=== PATIENT | female | born 1985 ===

== ENCOUNTER 2021-02-06 12:52 | Observation (INO) | payer SELFPAY ==
[2021-02-06 13:58] VITALS: BP 111/69
[2021-02-06] MEDS ORDERED: ACETAMINOPHEN 500 MG TAB PO ONE (14:09)
[2021-02-06] MEDS ORDERED: ACETAMINOPHEN 325 MG TAB PO PRN ×2 (14:41→15:24)
[2021-02-06] MEDS ORDERED: DOCUSATE SODIUM 100 MG CAP PO PRN ×2 (14:41→15:24)
--- NOTE | 2021-02-06 14:49 | Ultrasound Report ---
US OB limited INDICATION: Evaluate cervical length. COMPARISON: None available. FINDINGS: Cervical length measures 2.1 cm. A single live intrauterine is seen in cephalic presentation with a heart rate of 164 bpm. No significant abnormality is identified elsewhere. IMPRESSION: Decreased cervical length of 2.1 cm. Signer Name: Lonny Pennington MD Signed: 02/06/2021 2:45 PM Workstation Name: [id number]
[2021-02-06 14:57] LABS: Bilirubin,Urine NEG (Negative); Blood,Urine NEG (Negative); Color,Urine Yellow (Yellow); Mucus,Urine 1+ /HPF; Protein,Urine <15 mg/dL mg/dL (Negative); Urobilinogen,Urine < 2.0 mg/dL (<2.0)
[2021-02-06] MEDS ORDERED: WITCH HAZEL/ GLYCERIN PAD TP PRN (15:24)
[2021-02-06] MEDS ORDERED: SIMETHICONE 80 MG CHEW TAB PO PRN (15:24)
[2021-02-06] MEDS ORDERED: ONDANSETRON 4 MG/2 ML INJ IV PRN (15:24)
[2021-02-06] MEDS ORDERED: ALUM-MAG HYDROXIDE-SIMETHICONE 200-200-20MG/5ML ORAL LIQD 30 ML PO PRN (15:24)
[2021-02-06] MEDS ORDERED: guaiFENesin DM 200/20 MG ORAL LIQD 10 ML PO PRN (15:24)
[2021-02-06] MEDS ORDERED: SENNOSIDES/DOCUSATE SODIUM 8.6/50 MG TAB PO PRN (15:24)
[2021-02-06] MEDS ORDERED: SODIUM CHLORIDE NASAL SPRAY 44ML NS PRN (15:24)
[2021-02-06] MEDS ORDERED: PSEUDOEPHEDRINE 30 MG TAB PO PRN (15:24)
[2021-02-06] MEDS ORDERED: diphenhydrAMINE 25 MG CAP PO PRN (15:24)
[2021-02-06] MEDS ORDERED: MAGNESIUM HYDROXIDE (MOM) ORAL LIQD UDC PO PRN (15:24)
[2021-02-06] MEDS ORDERED: LACTATED RINGERS 1,000 ML ONE (15:39)
[2021-02-06] MEDS ORDERED: BETAMET ACET/BETAMET NA PH 6 MG/ML INJ 5 ML MDV IM ONE (16:01)
--- NOTE | 2021-02-06 16:12 | Event Note ---
Date: 02/06/21 35 yo at 23-24 week (JACKI 06/02/21) c/b hx PTD x 2 (29 and 21 weeks) on [place] weekly, declined cerclage, presenting with vaginal pain after taking vaginal progesterone x 1 day for PTL by [facility]. Patient with US showing unchanged cervical length from yesterday 1.8 cm with funneling. Spoke with [facility] Dr Hayden. Will given steriods q24H x 2 doses. D/c vaginal progesterone. Keep [facility] follow up.
[2021-02-06] MEDS ORDERED: LACTATED RINGERS 1,000 ML IV SCH (16:30)
[2021-02-07] MEDS ORDERED: BETAMET ACET/BETAMET NA PH 6 MG/ML INJ 5 ML MDV IM SCH (10:00)
[2021-02-07] MEDS ORDERED: PRENATAL VIT27-FE FUMARATE-FOLIC ACID VIT TAB PO SCH ×2 (10:00)
== END 2021-02-06 16:22 | disposition home or self-care (01) ==
LOC: TRG 12:52 → APU 12:53 → TRG 15:43
PROVIDERS: ADMIT Obstetrics & Gynecology; ATTEND Obstetrics & Gynecology
DX: O26.892 Other specified pregnancy related conditions, second trimester (principal); R10.2 Pelvic and perineal pain; O26.872 Cervical shortening, second trimester; Z3A.23 23 weeks gestation of pregnancy
CPT/HCPCS: 59025; 76815; 81001; 96372; G0378; J0702

== ENCOUNTER 2021-02-07 16:40 | Outpatient (CLI) | payer SELFPAY ==
[2021-02-07 17:04] VITALS: BP 118/71
[2021-02-07] MEDS ORDERED: LACTATED RINGERS 500 ML IV ONE (17:22)
[2021-02-07] MEDS ORDERED: BETAMET ACET/BETAMET NA PH 6 MG/ML INJ 5 ML MDV IM ONE (17:23)
== END 2021-02-07 17:54 | disposition home or self-care (01) ==
LOC: TRG 16:40 → APU 16:40 → TRG 17:54
PROVIDERS: ATTEND Obstetrics & Gynecology
DX: Z34.92 Encounter for supervision of normal pregnancy, unspecified, second trimester (principal); Z3A.23 23 weeks gestation of pregnancy
CPT/HCPCS: 59025; 96372; J0702

== ENCOUNTER 2021-02-22 10:36 | Outpatient (CLI) | payer OTHER ==
[2021-02-22 11:09] VITALS: BP 120/74
[2021-02-22] MEDS ORDERED: LACTATED RINGERS 500 ML IV ONE (11:15)
[2021-02-22 11:39] LABS: Bacteria,Urine 1+ /HPF (Negative); Bilirubin,Urine NEG (Negative); Blood,Urine NEG (Negative); Color,Urine Straw (Yellow); Protein,Urine <15 mg/dL mg/dL (Negative); Urobilinogen,Urine < 2.0 mg/dL (<2.0); WBC,Urine < 1.0 /HPF (0.0-6.0)
[2021-02-22] MEDS ORDERED: LIDOCAINE-MPF (1%) 10 MG/1 ML VIAL 5 ML INFILTRATI ONE (12:09)
[2021-02-22] MEDS ORDERED: LIDOCAINE-MPF (1%) 10 MG/1 ML VIAL 5 ML INFILTRATI NR (12:30)
== END 2021-02-22 13:05 | disposition home or self-care (01) ==
LOC: TRG 10:36 → APU 10:39 → TRG 13:05
PROVIDERS: ATTEND Obstetrics & Gynecology
DX: O26.852 Spotting complicating pregnancy, second trimester (principal); Z3A.26 26 weeks gestation of pregnancy
CPT/HCPCS: 59025; 81001; J0696

== ENCOUNTER 2021-03-23 12:32 | Outpatient (CLI) | payer SELFPAY ==
[2021-03-23 13:02] VITALS: BP 120/77
[2021-03-23] MEDS ORDERED: LACTATED RINGERS 1,000 ML IV ONE (13:03)
[2021-03-23 14:12] LABS: Bilirubin,Urine NEG (Negative); Blood,Urine NEG (Negative); Color,Urine Yellow (Yellow); Mucus,Urine FEW /HPF; Protein,Urine <15 mg/dL mg/dL (Negative); RBC,Urine < 1.0 /HPF (0.0-6.0); Urobilinogen,Urine < 2.0 mg/dL (<2.0)
== END 2021-03-23 15:00 | disposition home or self-care (01) ==
LOC: TRG 12:32 → APU 12:34 → TRG 15:00
PROVIDERS: ATTEND Obstetrics & Gynecology
DX: O47.03 False labor before 37 completed weeks of gestation, third trimester (principal); Z3A.30 30 weeks gestation of pregnancy
CPT/HCPCS: 59025; 81001; 96360; J7120

== ENCOUNTER 2021-04-13 13:45 | Outpatient (CLI) | payer OTHER ==
[2021-04-13 14:04] VITALS: BP 126/76
[2021-04-13] MEDS ORDERED: BETAMET ACET/BETAMET NA PH 6 MG/ML INJ 5 ML MDV IM ONE (15:28)
[2021-04-13] MEDS ORDERED: BETAMET ACET/BETAMET NA PH 6 MG/ML INJ 5 ML MDV IM SCH (16:00)
== END 2021-04-13 16:00 | disposition home or self-care (01) ==
LOC: TRG 13:45 → APU 13:54 → TRG 16:00
PROVIDERS: ATTEND Obstetrics & Gynecology
DX: Z34.93 Encounter for supervision of normal pregnancy, unspecified, third trimester (principal); Z3A.32 32 weeks gestation of pregnancy
CPT/HCPCS: 59025; 96372; J0702

== ENCOUNTER 2021-04-14 15:27 | Outpatient (CLI) | payer OTHER ==
[2021-04-14 15:50] VITALS: BP 118/80
[2021-04-14] MEDS ORDERED: BETAMET ACET/BETAMET NA PH 6 MG/ML INJ 5 ML MDV IM NR (15:51)
[2021-04-14] MEDS ORDERED: LACTATED RINGERS 500 ML IV ONE (15:51)
== END 2021-04-14 16:47 | disposition home or self-care (01) ==
LOC: TRG 15:27 → APU 15:29 → TRG 16:47
PROVIDERS: ATTEND Obstetrics & Gynecology
DX: Z34.93 Encounter for supervision of normal pregnancy, unspecified, third trimester (principal); Z3A.33 33 weeks gestation of pregnancy
CPT/HCPCS: 59025; J0702

== ENCOUNTER 2021-05-01 09:37 | Inpatient (IN) | payer OTHER ==
[2021-05-01] MEDS ORDERED: LACTATED RINGERS 1,000 ML ONE (09:53)
[2021-05-01] MEDS ORDERED: CARBOPROST TROMETHAMINE 250 MCG/1 ML INJ IM PRN (10:30)
[2021-05-01] MEDS ORDERED: TERBUTALINE 1 MG/1 ML INJ SUB-Q PRN (10:30)
[2021-05-01] MEDS ORDERED: LIDOCAINE (2%) 20 MG/1 ML VIAL 20 ML MDV INFILTRATI ONE (10:30)
[2021-05-01] MEDS ORDERED: METHYLERGONOVINE MALEATE 0.2 MG/ML VIAL IM PRN (10:30)
[2021-05-01] MEDS ORDERED: ePHEDrine SULFATE 50 MG/1 ML INJ IV PRN (10:30)
[2021-05-01] MEDS ORDERED: LOPERAMIDE 2 MG CAP PO PRN (10:30)
[2021-05-01] MEDS ORDERED: OXYTOCIN 10 UNIT/1 ML INJ IM PRN (10:30)
[2021-05-01] MEDS ORDERED: MINERAL OIL 30 ML ORAL LIQD PO PRN (10:30)
[2021-05-01] MEDS ORDERED: fentaNYL 100 MCG/2 ML INJ IV PRN (10:30)
[2021-05-01] MEDS ORDERED: BUTORPHANOL 2 MG/1 ML INJ IV PRN (10:30)
[2021-05-01] MEDS ORDERED: ACETAMINOPHEN 325 MG TAB PO PRN ×2 (10:30→13:14)
[2021-05-01] MEDS ORDERED: miSOPROStol 200 MCG TAB PR PRN (10:30)
[2021-05-01] MEDS ORDERED: LACTATED RINGERS 1,000 ML IV SCH (11:00)
[2021-05-01] MEDS ORDERED: OXYTOCIN DRIP 30 UNITS/500 ML BAG IV SCH ×2 (11:00)
[2021-05-01 11:19] LABS: Hemoglobin 12.8 gm/dl (10.1-14.3); Mean Corpuscular HGB Conc 33 % (30-34); Mean Corpuscular Volume 92 fl (79-97); Red Blood Count 4.23 M/mm3 (3.65-5.03); Red Cell Distribution Width 14.7 % (13.2-15.2)
[2021-05-01] MEDS ORDERED: KETAMINE/STERILE WATER 50 MG/ML SYRINGE ONE (11:36)
[2021-05-01] MEDS ORDERED: propofoL 200 MG/20 ML VIAL IV ONE ×2 (11:36→11:53)
[2021-05-01 11:43] LABS: Platelet Count 95 K/mm3 (140-440)
[2021-05-01] MEDS ORDERED: SODIUM CHLORIDE 0.9% 500 ML 500 ML IV SCH (11:53)
[2021-05-01] MEDS ORDERED: SODIUM CHLORIDE 0.9% 1000 ML 1,000 ML ONE (12:10)
--- NOTE | 2021-05-01 12:25 | Anesthesia Day of Surgery ---
Anesthesia Day of Surgery - Day of Surgery Patient Examined: Yes Patient H&P Reviewed: Yes Patient is NPO: Yes
--- NOTE | 2021-05-01 12:25 | Anesthesia Consultation ---
Anesthesia Consult and Med Hx Date of service: 05/01/21 - Airway Anesthetic Teeth Evaluation: Good ROM Head & Neck: Adequate Mental/Hyoid Distance: Adequate Mallampati Class: Class II Intubation Access Assessment: Probably Good - Pulmonary Exam CTA: Yes - Cardiac Exam Cardiac Exam: RRR - Pre-Operative Health Status ASA Pre-Surgery Classification: ASA3, Emergency Proposed Anesthetic Plan: MAC - Pulmonary Hx Asthma: No - Cardiovascular System Hx Hypertension: No - Central Nervous System Hx Seizures: No Hx Psychiatric Problems: No - Endocrine Hx Renal Disease: No Hx Non-Insulin Dependent Diabetes: Yes Hx Hypothyroidism: No Hx Hyperthyroidism: No - Hematic Hx Anemia: No Hx Sickle Cell Disease: No - Other Systems Hx Alcohol Use: No
--- NOTE | 2021-05-01 12:26 | Post Anesthesia Evaluation ---
- Post Anesthesia Evaluation Patient Participated: Yes Airway Patent: Yes Stable Respiratory Function: Yes Nausea/Vomiting: No Temp > 96.8F: Yes Pain Manageable: Yes Adequeate Hydration: Yes Anesthesia Complications: No Block Receding Appropriately: Not Applicable
--- NOTE | 2021-05-01 13:02 | History and Physical Report ---
History of Present Illness Date of examination: 05/01/21 Date of admission: 05/01/21 10:46 Chief complaint: admitted at 8cm for @ 35 + weeks Hx of PTDx2 hx of C/sectionx1: no scar report Past History Past Surgical History: section Family/Genetic History: none Social history: no significant social history - Obstetrical History : 3 Medications and Allergies Allergies Allergy/AdvReac Type Severity Reaction Status Date / Time No Known Allergies Allergy Verified 02/06/21 14:11 Active Meds: Active Medications Acetaminophen (Acetaminophen 325 Mg Tab) 650 mg PO Q4H PRN PRN Reason: Pain, Mild (1-3) Butorphanol Tartrate (Butorphanol 2 Mg/1 Ml Inj) 1 mg IV Q2H PRN PRN Reason: Pain, Moderate(4-6) LABOR PAIN Carboprost Tromethamine (Carboprost Tromethamine 250 Mcg/1 Ml Inj) 250 mcg IM ONCE PRN PRN Reason: Uterine Bleeding Ephedrine Sulfate (Ephedrine Sulfate 50 Mg/1 Ml Inj) 10 mg IV Q2M PRN PRN Reason: Hypotension Fentanyl (Fentanyl 100 Mcg/2 Ml Inj) 100 mcg IV Q2H PRN PRN Reason: Pain,Severe (7-10) LABOR PAIN Oxytocin/Sodium Chloride (Pitocin/Ns 30 Unit/500ml) 30 units in 500 mls @ 2 mls/hr IV TITR DAVID; Protocol Lactated Ringer's (Lactated Ringers) 1,000 mls @ 125 mls/hr IV DIRECT DAVID Oxytocin/Sodium Chloride (Pitocin/Ns 30 Unit/500ml) 30 units in 500 mls @ 40 mls/hr IV TITR DAVID; Protocol Sodium Chloride (Nacl 0.9% 500 Ml) 500 mls @ 0 mls/hr IV ONCE DAVID Loperamide HCl (Loperamide 2 Mg Cap) 2 mg PO ONCE PRN PRN Reason: give with Hemabate Methylergonovine Maleate (Methylergonovine Maleate 0.2 Mg/Ml Vial) 0.2 mg IM ONCE PRN PRN Reason: Uterine Bleeding Mineral Oil (Mineral Oil 30 Ml Oral Liqd) 30 ml PO QHS PRN PRN Reason: Constipation Misoprostol (Misoprostol 200 Mcg Tab) 800 mcg RI ONCE PRN PRN Reason: Uterine Bleeding Oxytocin (Oxytocin 10 Unit/1 Ml Inj) 10 unit IM ONCE PRN PRN Reason: Uterine Bleeding Terbutaline Sulfate (Terbutaline 1 Mg/1 Ml Inj) 0.25 mg SUB-Q ONCE PRN PRN Reason: Hyperstimulation/Hypertonicity - Vital Signs Vital signs: Vital Signs Pulse BP 112 H 133/73 05/01/21 11:13 05/01/21 11:13 Temp Pulse Resp BP Pulse Ox 112 H 133/73 05/01/21 11:13 05/01/21 11:13 - Physical Exam Breasts: Positive: deferred Cardiovascular: Regular rate Lungs: Positive: Clear to auscultation Abdomen: Positive: normal appearance, soft, normal bowel sounds Genitourinary (Female): Positive: normal external genitalia, normal perenium Vulva: both: normal Vagina: Positive: normal moisture Uterus: Positive: enlarged Adnexa: both: normal Anus/Rectum: Positive: normal perianal skin Extremities: Positive: normal Deep Tendon Reflex Grade: Normal +2 - Obstetrical FHR: category 1 Results Result Diagrams: 05/01/21 10:25 Abnormal lab results 05/01/21 05/01/21 Range/Units 10:25 10:25 Plt Count 95 L (140-440) K/mm3 Crossmatch See Detail All other labs normal. Assessment and Plan admission consent abx cfm expect VASHTI Middleton MD
--- NOTE | 2021-05-01 13:11 | Procedure Note ---
OB Delivery Note - Delivery Date of Delivery: 05/01/21 Surgeon: TAMMIE DUEÑAS - Vaginal Delivery position: OA Intrapartum events: labor-<37 weeks, other(please specify) (retained placenta ) Delivery induction: none Delivery augmentation: pitocin Delivery monitor: external FHT, external uterine Route of delivery: vacuum extraction Indicators for instrumentation: maternal exhaustion Delivery placenta: adherent, other (reatined placenta, removed in OR with suctio n and manual removal) Episiotomy: none Delivery laceration: 1st degree Delivery repair: vicryl Anesthesia: local, other (IV sedtion in OR) Delivery comments: Patient pushed to deliver a viable male with a vacuum-assisted vaginal delivery over an intact perineum. Vacuum applied second to extreme maternal exhaustion. Vacuum applied x1 with 1 pull to a maximum of 500 mmHg, no excess force used. The vacuum was removed to deliver the anterior shoulder was uncomplicated and the remainder of the delivery atraumatic. Cord was clamped and cut and baby handed to waiting that team. There was a first-degree perineal laceration that was repaired with 2-0 Vicryl while awaiting delivery of the placenta. After approximately 20 minutes the placenta did deliver in the cord evulsed. Patient was taken to the operating room where she received excellent IV sedation. Exam under anesthesia revealed copious amount of blood at the external os with retained products of conception at the uterine fundus. Products of conception were removed with both sharp and suction curettage and manual removal. 2 units of blood were transfused in the OR and PACU. Total EBL around 1200 mL Patient remained hemodynamically stable throughout. She will recover on , baby in NICU. Patient's apprised of stable status after procedure. Sponge and needle and instrument counts are correct x2. Trevor Dueñas MD
[2021-05-01] MEDS ORDERED: PROMETHAZINE 25 MG TAB PO PRN (13:14)
[2021-05-01] MEDS ORDERED: KETOROLAC 30 MG/1 ML INJ IV PRN (13:14)
[2021-05-01] MEDS ORDERED: diphenhydrAMINE 25 MG CAP PO PRN (13:14)
[2021-05-01] MEDS ORDERED: LANOLIN/ZINC/DIMETHICONE (LANSINOH) 7 GM TP PRN (13:14)
[2021-05-01] MEDS ORDERED: WITCH HAZEL/ GLYCERIN PAD TP PRN (13:14)
[2021-05-01] MEDS ORDERED: ONDANSETRON 4 MG/2 ML INJ IV PRN (13:14)
[2021-05-01] MEDS ORDERED: PROMETHAZINE 25 MG RECT SUPP PR PRN (13:14)
[2021-05-01] MEDS ORDERED: oxyCODONE /ACETAMINOPHEN 5-325MG TAB PO PRN (13:14)
[2021-05-01] MEDS ORDERED: ceFAZolin 1 GM VIAL ONE (14:11)
[2021-05-01 16:09] LABS: Hematocrit 37.5 % (30.3-42.9); Hemoglobin 12.3 gm/dl (10.1-14.3)
[2021-05-01] MEDS: METHYLERGONOVINE 0.2 MG TABLET PO SCH (17:34)
[2021-05-01] MEDS: HYDROcodone/ACETAMINOPHEN 5-325 MG TAB PO PRN (17:34)
[2021-05-01] MEDS: IBUPROFEN 600 MG TAB PO SCH (20:10)
[2021-05-02] MEDS: METHYLERGONOVINE 0.2 MG TABLET PO SCH ×3 (02:00→16:09)
[2021-05-02] MEDS: IBUPROFEN 600 MG TAB PO SCH ×5 (02:00→22:05)
[2021-05-02] MEDS: HYDROcodone/ACETAMINOPHEN 5-325 MG TAB PO PRN (06:00)
[2021-05-02 06:08] LABS: Hematocrit 32.9 % (30.3-42.9); Hemoglobin 10.6 gm/dl (10.1-14.3)
[2021-05-02] MEDS: MAGNESIUM HYDROXIDE (MOM) ORAL LIQD UDC PO PRN (09:04)
--- NOTE | 2021-05-02 09:30 | Progress Note ---
Assessment and Plan A: day 1 S/P VAVD. S/P blood transfusion after uterine hemorrhage. Anemia. P: Supplement with iron. Continue routine care. Repeat CBC due to low platelet count yesterday. Subjective - Subjective Date of service: 05/02/21 Principal diagnosis: day 1 S/P VAVD, S/P blood transfusion for uterine hemorrhage Interval history: Doing well S/P blood transfusion. Denies dizziness or pain. Denies shortness of breath, weakness, or fatigue. Patient reports: appetite normal, voiding normally, pain well controlled, flatus, ambulating normally, no dizzy ambulation, no nauseated Objective - Vital Signs Latest vital signs: Vital Signs Temp Pulse Resp BP Pulse Ox Pulse Ox 05/02/21 08:04 97.5 F L 91 H 16 108/66 97 05/02/21 00:37 98.2 F 81 18 109/64 96 05/01/21 21:45 98.3 F 86 18 106/67 98 05/01/21 20:10 99 05/01/21 15:26 97.9 F 85 18 126/81 99 05/01/21 11:13 112 H 133/73 Intake and Output 05/01/21 05/02/21 05/02/21 23:59 07:59 15:59 Intake Total 480 120 Output Total 400 225 Balance 80 -105 Intake: Oral 480 120 Output: Urine 400 225 Void 400 225 Other: Total, Intake Amount 240 120 Total, Output Amount 400 225 # Voids Void 1 1 - Exam Cardiovascular: Present: Regular rate Lungs: Present: Clear to auscultation Abdomen: Present: normal appearance, soft, normal bowel sounds. Absent: distention, tenderness, guarding, rigidity Uterus: Present: normal, firm, fundal height below umbilicus. Absent: bogginess, tenderness Extremities: Present: normal. Absent: tenderness, edema - Labs Labs: Abnormal lab results 05/01/21 05/01/21 Range/Units 10:25 10:25 Plt Count 95 L (140-440) K/mm3 Crossmatch See Detail
[2021-05-02] MEDS: FERROUS SULFATE 325 MG TAB PO SCH ×2 (10:46→22:05)
[2021-05-02 13:12] LABS: Hematocrit 32.7 % (30.3-42.9); Hemoglobin 10.5 gm/dl (10.1-14.3); Mean Corpuscular HGB Conc 32 % (30-34); Mean Corpuscular Volume 91 fl (79-97); Red Cell Distribution Width 14.7 % (13.2-15.2)
[2021-05-02 13:21] LABS: Platelet Count 91 K/mm3 (140-440)
[2021-05-02] MEDS: DOCUSATE SODIUM 100 MG CAP PO SCH ×2 (20:03→22:13)
[2021-05-03] MEDS: METHYLERGONOVINE 0.2 MG TABLET PO SCH ×3 (00:06→13:09)
[2021-05-03] MEDS: IBUPROFEN 600 MG TAB PO SCH ×3 (02:00→13:10)
[2021-05-03] MEDS: DOCUSATE SODIUM 100 MG CAP PO SCH (10:14)
[2021-05-03] MEDS: FERROUS SULFATE 325 MG TAB PO SCH (10:14)
[2021-05-03] MEDS: MAGNESIUM HYDROXIDE (MOM) ORAL LIQD UDC PO PRN (10:17)
--- NOTE | 2021-05-03 11:01 | Progress Note ---
Assessment and Plan PPD#2 VAVD with PPH, thrombocytopenia and already received blood transfusion 1. will repeat cbc and if platelets improved then discharge home All questions encouraged and answered. Subjective Date of service: 05/03/21 Principal diagnosis: PPD#2 VAVD with PPH; thrombocytopenia; Interval history: Pt has no complaints and has been going to the NICU to see her baby. Pt is voiding without difficulty. pt has no pelvic pain. vag bleed less than a period. pt is breast pumping for baby. Objective - Constitutional Vitals: Vital Signs - 12hr 05/02/21 05/03/21 05/03/21 23:56 00:06 07:33 Temperature 97.9 F 97.8 F Pulse Rate 81 72 Respiratory 20 18 20 Rate Blood Pressure 99/56 103/61 O2 Sat by Pulse 98 99 Oximetry General appearance: Present: no acute distress - Respiratory Respiratory effort: normal - Breasts Breasts: normal - Cardiovascular Rhythm: regular Extremities: No edema - Gastrointestinal General gastrointestinal: Present: soft, non-tender - Genitourinary Female genitourinary: other (Lochia small; fundus firm 2cm below umbilicus) - Neurologic Neurologic: moves all extremities - Psychiatric Psychiatric: appropriate mood/affect - Labs CBC & Chem 7: 05/02/21 12:11 Labs: Abnormal lab results 05/01/21 05/02/21 Range/Units 10:25 12:11 RBC 3.60 L (3.65-5.03) M/mm3 Plt Count 91 L (140-440) K/mm3 Crossmatch See Detail Medications & Allergies - Medications Allergies/Adverse Reactions: Allergies No Known Allergies Allergy (Verified 02/06/21 14:11) Active Medications: Generic Name Dose Route Start Last Admin Trade Name Freq PRN Reason Stop Dose Admin Acetaminophen 650 mg 05/01/21 13:14 05/03/21 00:06 Acetaminophen 325 Mg Tab PO 650 mg Q4H PRN Administration Pain MILD(1-3)/Fever >100.5/LOPEZ Hydrocodone Bitart/Acetaminophen 2 each 05/01/21 13:14 05/02/21 06:00 Hydrocodone/Acetaminophen 5-325 Mg Tab PO 2 each Q6H PRN Administration Pain, Moderate (4-6) Bisacodyl 10 mg 05/01/21 13:14 Bisacodyl 10 Mg Rect Supp MD BID PRN Constipation Butorphanol Tartrate 1 mg 05/01/21 10:30 Butorphanol 2 Mg/1 Ml Inj IV Q2H PRN Pain, Moderate(4-6) LABOR PAIN Carboprost Tromethamine 250 mcg 05/01/21 10:30 Carboprost Tromethamine 250 Mcg/1 Ml Inj IM ONCE PRN Uterine Bleeding Diphenhydramine HCl 25 mg 05/01/21 13:14 Diphenhydramine 25 Mg Cap PO Q6H PRN Itching Docusate Sodium 100 mg 05/02/21 22:00 05/03/21 10:14 Docusate Sodium 100 Mg Cap PO 100 mg BID DAVID Administration Ephedrine Sulfate 10 mg 05/01/21 10:30 Ephedrine Sulfate 50 Mg/1 Ml Inj IV Q2M PRN Hypotension Fentanyl 100 mcg 05/01/21 10:30 Fentanyl 100 Mcg/2 Ml Inj IV Q2H PRN Pain,Severe (7-10) LABOR PAIN Ferrous Sulfate 325 mg 05/02/21 10:00 05/03/21 10:14 Ferrous Sulfate 325 Mg Tab PO 325 mg BID DAVID Administration Oxytocin/Sodium Chloride 30 units in 500 mls @ 2 mls/hr 05/01/21 11:00 Pitocin/Ns 30 Unit/500ml IV TITR DAVID Protocol Lactated Ringer's 1,000 mls @ 125 mls/hr 05/01/21 11:00 Lactated Ringers IV DIRECT DAVID Oxytocin/Sodium Chloride 30 units in 500 mls @ 40 mls/hr 05/01/21 11:00 Pitocin/Ns 30 Unit/500ml IV TITR [facility] Protocol Sodium Chloride 500 mls @ 0 mls/hr 05/01/21 11:53 Nacl 0.9% 500 Ml IV ONCE DAVID As Directed Ibuprofen 600 mg 05/01/21 14:00 05/03/21 05:37 Ibuprofen 600 Mg Tab PO 600 mg Q6H DAVID Administration Ketorolac Tromethamine 30 mg 05/01/21 13:14 Ketorolac 30 Mg/1 Ml Inj IV 05/06/21 13:13 Q6H PRN Pain, Moderate (4-6) Loperamide HCl 2 mg 05/01/21 10:30 Loperamide 2 Mg Cap PO ONCE PRN give with Hemabate Magnesium Hydroxide 30 ml 05/01/21 13:14 05/03/21 10:17 Magnesium Hydroxide (Mom) Oral Liqd Udc PO 30 ml HS PRN Administration Constipation Methylergonovine Maleate 0.2 mg 05/01/21 10:30 Methylergonovine Maleate 0.2 Mg/Ml Vial IM ONCE PRN Uterine Bleeding Methylergonovine Maleate 0.2 mg 05/01/21 15:00 05/03/21 05:37 Methylergonovine 0.2 Mg Tablet PO 05/03/21 14:59 0.2 mg Q8HR DAVID Administration Mineral Oil 30 ml 05/01/21 10:30 Mineral Oil 30 Ml Oral Liqd PO QHS PRN Constipation Misoprostol 800 mcg 05/01/21 10:30 Misoprostol 200 Mcg Tab MD ONCE PRN Uterine Bleeding Multi-Ingredient Ointment 1 applic 05/01/21 13:14 Lanolin/Zinc/Dimethicone (Lansinoh) 7 Gm TP PRN PRN Sore Nipples Ondansetron HCl 4 mg 05/01/21 13:14 Ondansetron 4 Mg/2 Ml Inj IV Q8H PRN Nausea And Vomiting Oxycodone/Acetaminophen 1 tab 05/01/21 13:14 Oxycodone /Acetaminophen 5-325mg Tab PO Q6H PRN Pain, Moderate (4-6) Oxytocin 10 unit 05/01/21 10:30 Oxytocin 10 Unit/1 Ml Inj IM ONCE PRN Uterine Bleeding Promethazine HCl 25 mg 05/01/21 13:14 Promethazine 25 Mg Rect Supp MD Q6H PRN Nausea And Vomiting Promethazine HCl 25 mg 05/01/21 13:14 Promethazine 25 Mg Tab PO Q6H PRN Nausea And Vomiting Sodium Chloride 10 ml 05/01/21 14:00 Sodium Chloride 0.9% 10 Ml Flush Syringe IV PRN DAVID Terbutaline Sulfate 0.25 mg 05/01/21 10:30 Terbutaline 1 Mg/1 Ml Inj SUB-Q ONCE PRN Hyperstimulation/Hypertonicity Witch Akiko/Glycerin 1 each 05/01/21 13:14 Witch Akiko/ Glycerin Pad TP PRN PRN Hemorrhoid/cleansing/soothing
[2021-05-03 13:11] LABS: Basophils % (Auto) 0.4 % (0.0-1.8); Eosinophils # (Auto) 0.1 K/mm3 (0.0-0.4); Eosinophils % (Auto) 1.3 % (0.0-4.3); Hematocrit 30.1 % (30.3-42.9); Hemoglobin 9.6 gm/dl (10.1-14.3); Lymphocytes # (Auto) 1.5 K/mm3 (1.2-5.4); Lymphocytes % (Auto) 19.1 % (13.4-35.0); Mean Corpuscular HGB Conc 32 % (30-34); Mean Corpuscular Volume 93 fl (79-97); Monocytes # (Auto) 0.5 K/mm3 (0.0-0.8); Monocytes % (Auto) 6.7 % (0.0-7.3); Platelet Count 100 K/mm3 (140-440); Red Blood Count 3.25 M/mm3 (3.65-5.03); Red Cell Distribution Width 15.2 % (13.2-15.2)
--- NOTE | 2021-05-03 14:55 | Discharge Summary ---
Providers - Providers Date of Admission: 05/01/21 10:46 Date of discharge: 05/03/21 Attending physician: TAMMIE DUEÑAS MD Primary care physician: TAMMIE DUEÑAS MD Hospitalization Reason for admission: IUP - Delivery: vacuum extraction Episiotomy: none Laceration: 1st degree Other procedures: curettage (retained placenta with removal in OR) complications: retained placenta (manual removal and curettage in the OR and PPH), transfusion Discharge diagnosis: other (PPH with retained placenta removed in the OR, manually and curettage; Blood transfusion; Thrombocytopenia), delivery baby: male Hospital course: vacuum assited delivery by Dr. Dueñas then retained placenta, and then removal done in the OR manually and also curettage. PPH hemorrhage and transfusion of 2units PRBC; thrombocytopenia with platelets improved to 100 on day of discharge and pt asymptomatic. Baby in the NICU and pt pumping breast milk for baby. Condition at discharge: Good Disposition: 01 HOME / SELF CARE / HOMELESS Plan - Provider Discharge Summary Activity: no sex for 6 weeks Diet: routine Additional instructions: [] Smoking cessation referral if applicable(refer to patient education folder for contact #) [] Refer to [facility] Booklet Call your doctor immediately for: * Fever > 100.5 * Heavy vaginal bleeding ( >1 pad per hour) * Severe persistent headache * Shortness of breath * Reddened, hot, painful area to leg or breast * Drainage or odor from incision. * Keep incision clean and dry at all times and follow doctor's instructions regarding bathing/showering - Follow up plan Follow up: TAMMIE DUEÑAS MD [Primary Care Provider] - 7 Days
[2021-05-03 15:55] VITALS: BP 112/68
== END 2021-05-03 15:55 | disposition home or self-care (01) | DRG 806 ==
LOC: TRG 09:37 → APU 09:38 → LD 10:22 → TRG 10:45 → LD 10:46 → OB 14:59
PROVIDERS: ADMIT Obstetrics & Gynecology; ATTEND Obstetrics & Gynecology
PROC: 10D07Z6 Extraction of Products of Conception, Vacuum, Via Natural or Artificial Opening (ICD-10-PCS; principal; 2021-05-01)
PROC: 10D17Z9 Manual Extraction of Products of Conception, Retained, Via Natural or Artificial Opening (ICD-10-PCS; 2021-05-01)
PROC: 0HQ9XZZ Repair Perineum Skin, External Approach (ICD-10-PCS; 2021-05-01)
PROC: 30233N1 Transfusion of Nonautologous Red Blood Cells into Peripheral Vein, Percutaneous Approach (ICD-10-PCS; 2021-05-01)
DX: O60.14X0 Preterm labor third trimester with preterm delivery third trimester, not applicable or unspecified (principal); O99.12 Other diseases of the blood and blood-forming organs and certain disorders involving the immune mechanism complicating childbirth; Z37.0 Single live birth; Z3A.35 35 weeks gestation of pregnancy; Z20.822 Contact with and (suspected) exposure to COVID-19; O34.219 Maternal care for unspecified type scar from previous cesarean delivery; O70.0 First degree perineal laceration during delivery; E86.1 Hypovolemia; O67.8 Other intrapartum hemorrhage; O90.81 Anemia of the puerperium; D64.9 Anemia, unspecified; D69.6 Thrombocytopenia, unspecified
CPT/HCPCS: 36415; 85014; 85018; 85025; 85027; 86592; 86706; 86762; 86850; 86900; 86901; 86920; 87806; 88307; G0378; J7120; Q0162; J0690; J2704; J3490; J7030; P9016; U0003